=== PATIENT | male | born 1975 | race Caucasian/White ===

== ENCOUNTER 2018-03-03 09:24 | Emergency (ER) | payer MEDICAID ==
[~2018-03-03] VITALS: Ht 195.6 cm; Wt 106.5 kg
[2018-03-03 09:26] VITALS: BP 170/89; PULSE 91; RESP 18; TEMP 98.4; O2SAT 96
[2018-03-03 09:39] VITALS: BP 156/94
[2018-03-03] MEDS ORDERED: NABU1TAB37 PO (09:53)
[2018-03-03] MEDS ORDERED: CLIN300C5 PO (09:53)
--- NOTE | 2018-03-03 09:57 | PD ---
HPI . Dental access Chief Complaint: Oral / Dental Pain or Problem Time Seen by Provider: 09:33 Travel History International Travel<30 days: No Contact w/Intl Traveler<30days: No Traveled to known affect area: No History of Present Illness HPI Patient presents with a chief complaint of left cheek pain and swelling. He has had this before secondary to dental abscesses. The patient states that he was evaluated by dentist this past week and is due to have all of his teeth pulled next week. He was not having any issues at that time. He developed pain and swelling of the left cheek about 2 days ago and it has gotten progressively worse since that time. He rates the pain at 10/10. PFSH Past Medical History Medical History: Denies Significant Hx Hx Anticoagulant Therapy: No Cardiovascular Problems: No Chemotherapy: No Cerebrovascular Accident: No Diabetes: No Diminished Hearing: No Respiratory: No Past Surgical History Hysterectomy: No Social History Alcohol Use: No (once a week) Tobacco Use: No (QUIT 3YRS AGO. 5 PACK YRS) Substance Use: No Allergies-Medications (Allergen,Severity, Reaction): Coded Allergies: No Known Allergies (Verified , 02/05/16) Reported Meds & Prescriptions Reported Meds & Active Scripts Active Clindamycin (Clindamycin HCl) 300 Mg Cap 600 Mg PO Q8H 10 Days Nabumetone 500 Mg Tab 500 Mg PO BID Review of Systems Except as stated in HPI: all other systems reviewed are Neg Physical Exam Narrative GENERAL: Awake and alert and in no acute distress. SKIN: Warm and dry. HEAD: Normocephalic/atraumatic. EYES: Pupils are equal. Extraocular movements are intact. ENT: Mild swelling of the left cheek with tenderness to palpation. The skin is not red or hot. His dentition is extremely poor. His teeth look like "meth mouth." NECK: Normal range of motion. There is no cervical lymphadenopathy. CARDIOVASCULAR: Regular rate and rhythm. RESPIRATORY: Nonlabored respirations. MUSCULOSKELETAL: Atraumatic. NEUROLOGICAL: Nonfocal. PSYCHIATRIC: Appropriate mood and affect. Data Data Last Documented VS Vital Signs Date Time Temp Pulse Resp B/P (MAP) Pulse Ox O2 Delivery O2 Flow Rate FiO2 03/03/18 09:39 156/94 (114) 03/03/18 09:26 98.4 91 18 96 Orders Orders Ed Discharge Order (03/03/18 09:53) [facility] Medical Decision Making Medical Screen Exam Complete: Yes Emergency Medical Condition: Yes Differential Diagnosis Differential diagnosis of a toothache includes but is not limited to dental caries, dental abscess, gingivitis, drug-seeking behavior. Narrative Course Patient presents complaining with pain and swelling of his left cheek secondary to a dental abscess. His teeth are in very poor repair. He states that he is scheduled to have all of his teeth extracted next week. I will discharge him with prescriptions for clindamycin and Relafen. He is to keep his appointment with the dentist. Diagnosis Primary Impression: Dental abscess Patient Instructions: General Instructions, Dental Abscess (ED) Departure Forms: Tests/Procedures Additional Instructions: Follow up with a dentist Scripts Clindamycin (Clindamycin) 300 Mg Cap 600 MG PO Q8H for Infection for 10 Days, #60 CAP 0 Refills Prov: Aga Santana MD 03/03/18 Nabumetone (Nabumetone) 500 Mg Tab 500 MG PO BID for Pain-Inflammation, #60 TAB 0 Refills Prov: Aga Santana MD 03/03/18 Disposition: 01 DISCHARGE HOME Condition: Stable Aga Santana MD March 03, 2018 09:57
== END 2018-03-03 10:11 | disposition home or self-care (01) ==
LOC: NEPD 09:24
DX: K04.7 Periapical abscess without sinus (principal)
CPT/HCPCS: 99283